=== PATIENT | female | born 1995 | race Caucasian/White ===

== ENCOUNTER → 2020-08-01 | Outpatient (REF) | payer OTHER | LOC: M WUC 19:34 | PROVIDERS: ATTEND Physician Assistant | DX: J00 Acute nasopharyngitis [common cold] (principal) ==

== ENCOUNTER → 2021-04-10 | Outpatient (REF) | LOC: M LABSMTC 09:26 | PROVIDERS: ATTEND Family Medicine | DX: Z20.822 Contact with and (suspected) exposure to COVID-19 (principal) ==

== ENCOUNTER 2021-05-09 06:10 | Emergency (ER) | payer OTHER ==
[~2021-05-09] VITALS: Ht 149.9 cm; Wt 47.3 kg
[2021-05-09 06:42] LABS: HEMATOCRIT 34.7 % (36.0-47.0); HEMOGLOBIN 11.5 g/dl (12.0-15.5); MEAN CORPUSCULAR HGB CONC 33.1 g/dl (32.0-36.5); MEAN CORPUSCULAR VOLUME 90.6 fl (80.0-96.0); PLATELET COUNT, AUTOMATED 221 10^3/uL (150-450); RED BLOOD COUNT 3.83 10^6/uL (4.00-5.40); WHITE BLOOD COUNT 11.4 10^3/uL (4.0-10.0)
[2021-05-09] MEDS ORDERED: NS 1,000 ML IV ONE (07:10)
[2021-05-09] MEDS ORDERED: KETOROLAC 30 MG/ML 1ML VIAL IV ONE (07:35)
[2021-05-09 08:50] LABS: BILIRUBIN, URINE MANUAL NEGATIVE (NEGATIVE); GLUCOSE, URINE (UA) MANUAL NEGATIVE (NEGATIVE); KETONE, URINE MANUAL 3+ mg/dL (NEGATIVE); UROBILINOGEN, URINE MANUAL NORMAL (NORMAL)
[2021-05-09 09:00] LABS: BACTERIA, URINE SMALL AMOUNT; HYALINE CAST, URINE NONE SEEN /lpf (0-1); RBC, URINE TNTC /hpf (0-3); SQUAMOUS EPITHELIAL CELL URINE SMALL AMOUNT /hpf (SMALL AMT)
[2021-05-09 10:01] VITALS: BP 114/66
[2021-05-09 11:57] LABS: GC DNA AMPLIFICATION NEGATIVE (NEGATIVE)
== END 2021-05-09 10:35 | disposition home or self-care (01) ==
LOC: M ED 06:10
DX: O03.9 Complete or unspecified spontaneous abortion without complication (principal); N93.9 Abnormal uterine and vaginal bleeding, unspecified; J45.909 Unspecified asthma, uncomplicated; R71.0 Precipitous drop in hematocrit; Z3A.11 11 weeks gestation of pregnancy
CPT/HCPCS: 76801; 76817; 81000; 81015; 84702; 85027; 86901; 87086; 87661; 93976; 96361; 96374; 99284; J1885

== ENCOUNTER 2021-10-08 15:02 | Emergency (ER) | payer OTHER ==
[~2021-10-08] VITALS: Ht 149.9 cm; Wt 49.0 kg
[2021-10-08 15:03] VITALS: BP 144/84
[2021-10-08 15:43] LABS: BASO % 0.4 % (0.0-1.0); EOS # 0.4 10^3/uL (0.0-0.5); EOS % 4.1 % (0.0-3.0); HEMATOCRIT 40.8 % (36.0-47.0); HEMOGLOBIN 13.4 g/dl (12.0-15.5); LYMPH # 2.1 10^3/uL (1.5-5.0); LYMPH % 22.5 % (24.0-44.0); MEAN CORPUSCULAR HEMOGLOBIN 29.5 pg (27.0-33.0); MEAN CORPUSCULAR HGB CONC 32.8 g/dl (32.0-36.5); MEAN CORPUSCULAR VOLUME 89.9 fl (80.0-96.0); MONO # 0.8 10^3/uL (0.0-0.8); MONO % 8.8 % (2.0-8.0); NEUTROPHILS % 63.9 % (36.0-66.0); PLATELET COUNT, AUTOMATED 266 10^3/uL (150-450); RED BLOOD COUNT 4.54 10^6/uL (4.00-5.40); WHITE BLOOD COUNT 9.4 10^3/uL (4.0-10.0)
[2021-10-08 16:31] LABS: BLOOD UREA NITROGEN 14 MG/DL (7-18); CALCIUM LEVEL 9.7 MG/DL (8.5-10.1); CARBON DIOXIDE LEVEL 24 MEQ/L (21-32); CHLORIDE LEVEL 107 MEQ/L (98-107); CREATININE FOR GFR 0.78 MG/DL (0.55-1.30); GLOMERULAR FILTRATION RATE > 60.0 (>60); GLUCOSE, FASTING 106 MG/DL (70-100); HCG, SERUM QUANTITATIVE 8085 MIU/ML; POTASSIUM SERUM 3.4 MEQ/L (3.5-5.1); SODIUM LEVEL 136 MEQ/L (136-145)
== END 2021-10-08 19:36 | disposition home or self-care (01) ==
LOC: M ED 15:02
DX: O20.0 Threatened abortion (principal); J45.909 Unspecified asthma, uncomplicated; Z3A.08 8 weeks gestation of pregnancy

== ENCOUNTER 2021-10-09 14:40 | Emergency (ER) | payer OTHER ==
[~2021-10-09] VITALS: Ht 149.9 cm; Wt 48.5 kg
[2021-10-09 16:52] LABS: BASO % 0.3 % (0.0-1.0); EOS # 0.3 10^3/uL (0.0-0.5); EOS % 2.9 % (0.0-3.0); HEMATOCRIT 39.7 % (36.0-47.0); HEMOGLOBIN 12.9 g/dl (12.0-15.5); LYMPH % 16.6 % (24.0-44.0); MEAN CORPUSCULAR HEMOGLOBIN 29.6 pg (27.0-33.0); MEAN CORPUSCULAR HGB CONC 32.5 g/dl (32.0-36.5); MEAN CORPUSCULAR VOLUME 91.1 fl (80.0-96.0); MONO # 0.9 10^3/uL (0.0-0.8); MONO % 7.9 % (2.0-8.0); NEUTROPHILS # 8.5 10^3/uL (1.5-8.5); PLATELET COUNT, AUTOMATED 270 10^3/uL (150-450); RED BLOOD COUNT 4.36 10^6/uL (4.00-5.40); WHITE BLOOD COUNT 11.8 10^3/uL (4.0-10.0)
[2021-10-09 18:03] LABS: BLOOD UREA NITROGEN 18 MG/DL (7-18); CALCIUM LEVEL 9.4 MG/DL (8.5-10.1); CARBON DIOXIDE LEVEL 25 MEQ/L (21-32); CHLORIDE LEVEL 108 MEQ/L (98-107); CREATININE FOR GFR 0.77 MG/DL (0.55-1.30); GLOMERULAR FILTRATION RATE > 60.0 (>60); GLUCOSE, FASTING 87 MG/DL (70-100); HCG, SERUM QUANTITATIVE 5921 MIU/ML; POTASSIUM SERUM 3.8 MEQ/L (3.5-5.1); SODIUM LEVEL 138 MEQ/L (136-145)
[2021-10-09 21:07] VITALS: BP 111/59
== END 2021-10-09 21:30 | disposition home or self-care (01) ==
LOC: M ED 14:40
DX: O20.0 Threatened abortion (principal); J45.909 Unspecified asthma, uncomplicated; Z3A.00 Weeks of gestation of pregnancy not specified

== ENCOUNTER → 2021-10-18 | Outpatient (CLI) | payer OTHER | LOC: M RAD 11:28 | PROVIDERS: ATTEND Physician Assistant | DX: R06.00 Dyspnea, unspecified (principal) ==

== ENCOUNTER → 2021-10-29 | Outpatient (CLI) | payer OTHER | LOC: M PLALAB 10:36 | PROVIDERS: ATTEND Advanced Practice Midwife | DX: O03.9 Complete or unspecified spontaneous abortion without complication (principal) ==

== ENCOUNTER → 2022-04-23 | Outpatient (CLI) | payer OTHER | LOC: M WHC 10:43 | PROVIDERS: ATTEND Registered Nurse | DX: Z34.92 Encounter for supervision of normal pregnancy, unspecified, second trimester (principal); Z3A.19 19 weeks gestation of pregnancy ==

== ENCOUNTER 2022-08-30 07:28 | Inpatient (IN) | payer OTHER ==
[~2022-08-30] VITALS: Ht 149.9 cm; Wt 65.2 kg
[2022-08-30] VITALS (15 sets, daily range): BP systolic 112–143; BP diastolic 53–84
[2022-08-30] MEDS ORDERED: PRENTAB9 PO (07:50)
[2022-08-30] MEDS ORDERED: ALBU6.7H6 INH (07:50)
[2022-08-30] MEDS ORDERED: HOME MED LIST COMPLETE! XX SCH (07:55)
[2022-08-30 09:04] LABS: HEMATOCRIT 36.2 % (36.0-47.0); HEMOGLOBIN 11.9 g/dl (12.0-15.5); MEAN CORPUSCULAR HEMOGLOBIN 29.8 pg (27.0-33.0); MEAN CORPUSCULAR HGB CONC 32.9 g/dl (32.0-36.5); MEAN CORPUSCULAR VOLUME 90.5 fl (80.0-96.0); PLATELET COUNT, AUTOMATED 233 10^3/uL (150-450); WHITE BLOOD COUNT 13.5 10^3/uL (4.0-10.0)
[2022-08-30] MEDS ORDERED: LACTATED RINGER'S 1000 ML IV STA (09:16)
[2022-08-30] MEDS ORDERED: LIDOCAINE 1% MDV 20ML VIAL INFIL PRN (09:20)
[2022-08-30] MEDS ORDERED: OXYTOCIN DRIP 30 UNITS in IV 1 EA IV PRN ×6 (09:20)
[2022-08-30] MEDS ORDERED: OXYTOCIN INJ 10UNITS/ML 1ML VIAL IM PRN (09:20)
[2022-08-30] MEDS ORDERED: TRANEXAMIC ACID INJection 1,000 MG in NS 100 ML IV PRN (09:20)
[2022-08-30] MEDS ORDERED: CARBOPROST TROMETHAMINE 250 MCG/ML AMP IM PRN (09:20)
[2022-08-30] MEDS ORDERED: METHYLERGONOVINE MALEATE 0.2MG/ML 1ML VIAL IM PRN (09:20)
[2022-08-30] MEDS: miSOPROStol 50MCG 1/2 TABLET PO SCH ×3 (10:11→20:33)
[2022-08-30] MEDS ORDERED: NALBUPHINE HCL 10 MG/ML 1ML AMP IV PRN (22:50)
[2022-08-30] MEDS ORDERED: PROMETHAZINE 25MG/ML 1ML VIAL IV ONE (22:50)
[2022-08-30] MEDS ORDERED: NALBUPHINE HCL 10 MG/ML 1ML AMP IV ONE (23:05)
[2022-08-30] MEDS: LR 1,000 ML IV SCH (23:37)
[2022-08-31] VITALS (38 sets, daily range): BP systolic 90–154; BP diastolic 53–82; TEMP 98
[2022-08-31] MEDS: miSOPROStol 50MCG 1/2 TABLET PO SCH ×2 (01:51→05:53)
[2022-08-31] MEDS ORDERED: OXYTOCIN DRIP 30 UNITS in IV 1 EA IV SCH (11:15)
[2022-08-31] MEDS ORDERED: LR 1,000 ML IV SCH (11:15)
[2022-08-31] MEDS: LR 1,000 ML IV SCH ×3 (11:52→21:42)
[2022-08-31] MEDS ORDERED: ePHEDrine SULFATE 25 MG/5 ML(5MG/ML) SYRINGE IVP PRN (14:25)
[2022-08-31] MEDS ORDERED: diphenhydrAMINE 50MG/ML VIAL IV PRN (14:25)
[2022-08-31] MEDS ORDERED: NALOXONE INJ 0.4MG/1ML VIAL IV PRN (14:25)
[2022-08-31] MEDS ORDERED: ONDANSETRON 4MG 2ML VIAL IV PRN (14:25)
[2022-08-31] MEDS ORDERED: LR 500 ML IV PRN (14:25)
[2022-08-31] MEDS ORDERED: EPIDURAL/PCA KEYS XX PRN (14:25)
[2022-08-31] MEDS: FENTANYL/ROPIVACAINE/NACL BAG 100 ML EPIDURAL SCH ×2 (17:11→23:29)
[2022-09-01] VITALS (10 sets, daily range): BP systolic 100–134; BP diastolic 50–75; O2SAT 98–99
[2022-09-01 02:33] LABS: CORD GAS ABE V -6.1; CORD GAS O2 SAT V 79.9 %; CORD GAS PCO2 V 36.6 mmHg; CORD GAS PH V 7.333 UNITS; CORD GAS PO2 V 36.1 mmHg; CORD GAS SBC V 19.1 MMOL/L; CORD GAS TCO2 V 20.1 MMOL/L
[2022-09-01] MEDS ORDERED: METOCLOPRAMIDE INJ 10MG/2ML VIAL IV PRN (02:40)
[2022-09-01] MEDS ORDERED: IBUPROFEN 600MG TAB PO PRN (02:40)
[2022-09-01] MEDS ORDERED: DOCUSATE SODIUM 100MG CAPSULE PO PRN (02:40)
[2022-09-01] MEDS: LR 1,000 ML IV SCH ×3 (02:40→18:40)
[2022-09-01] MEDS ORDERED: OXYTOCIN DRIP 30 UNITS in IV 1 EA IV SCH ×4 (02:40)
[2022-09-01] MEDS ORDERED: DIBUCAINE 1% OINTMENT 30GM TOP PRN (02:40)
[2022-09-01] MEDS ORDERED: MOM 30ML SUSPENSION UDC PO PRN (02:40)
[2022-09-01] MEDS ORDERED: ACETAMINOPHEN TAB 650MG DOSE (2X325MG) PO PRN (02:40)
[2022-09-01] MEDS ORDERED: METHYLERGONOVINE MALEATE 0.2 MG TAB PO PRN (02:40)
[2022-09-01] MEDS ORDERED: RHOGAM 300MCG (1500IU) INJ IM SCH (02:40)
[2022-09-01] MEDS: ALBUTEROL 90 MCG/ACT 8GM HFA INHALER INH SCH ×3 (02:40→10:40)
[2022-09-01] MEDS ORDERED: ACETAMINOPHEN 500 MG TAB PO PRN (02:40)
[2022-09-01] MEDS: IBUPROFEN 800 MG TAB PO PRN (03:35)
[2022-09-01] MEDS ORDERED: PRENATAL VITAMINS CHEWABLE TABLET PO SCH (09:00)
[2022-09-01] MEDS: PRENATAL VITAMINS CHEWABLE TABLET PO SCH (09:03)
[2022-09-01] MEDS ORDERED: ALBUTEROL 90 MCG/ACT 8GM HFA INHALER INH PRN (12:45)
[2022-09-02] MEDS: IBUPROFEN 800 MG TAB PO PRN (03:42)
[2022-09-02 06:00] VITALS: BP 128/59; O2SAT 98
[2022-09-02] MEDS: PRENATAL VITAMINS CHEWABLE TABLET PO SCH (09:04)
[2022-09-03] MEDS ORDERED: MEASLES,MUMPS,RUBELLA VACCINE INJ (MMR-II) SC.IMMUN ONE (09:00)
== END 2022-09-02 15:50 | disposition home or self-care (01) | DRG 807 ==
LOC: M LDI 07:28 → M OBS 09-01 04:57
PROVIDERS: ADMIT Obstetrics & Gynecology; ATTEND Obstetrics & Gynecology
PROC: 3E033VJ Introduction of Other Hormone into Peripheral Vein, Percutaneous Approach (ICD-10-PCS; 2022-08-30)
PROC: 10907ZC Drainage of Amniotic Fluid, Therapeutic from Products of Conception, Via Natural or Artificial Opening (ICD-10-PCS; 2022-08-31)
PROC: 10E0XZZ Delivery of Products of Conception, External Approach (ICD-10-PCS; principal; 2022-09-01)
DX: O36.5930 Maternal care for other known or suspected poor fetal growth, third trimester, not applicable or unspecified (principal); Z37.0 Single live birth; Z3A.38 38 weeks gestation of pregnancy